=== PATIENT | male | born 1980 | race African-American/Black ===

== ENCOUNTER 2018-04-27 22:53 | Inpatient (IN) | payer BC ==
[~2018-04-27] VITALS: Ht 185.4 cm; Wt 120.1 kg
[2018-04-28 00:03] VITALS: BP 137/56; PULSE 100; RESP 18
[2018-04-28] MEDS ORDERED: SOD CHLORIDE 0.9% 500 ML IV ONE (00:30)
[2018-04-28] MEDS ORDERED: NACL 0.9% 3 ML SYG IV SCH (00:30)
[2018-04-28] MEDS ORDERED: ONDANSETRON 4 MG INJ IV PRN (00:30)
[2018-04-28] MEDS ORDERED: ACETAMINOPHEN 325 MG TAB PO PRN (00:30)
[2018-04-28] MEDS ORDERED: ALBUTEROL/IPRATROPIUM (NEB) 3 ML AMP HHN PRN (00:30)
[2018-04-28] MEDS: SOD CHLORIDE 0.9% 1,000 ML IV SCH ×4 (00:46→22:25)
[2018-04-28] MEDS ORDERED: HYDROCODONE/APAP (5/325) TAB PO PRN (01:30)
[2018-04-28] MEDS: HYDROCODONE/APAP (5/325) TAB PO PRN ×3 (01:40→10:50)
[2018-04-28 02:10] VITALS: Ht 185.4 cm; Wt 120.1 kg
--- NOTE | 2018-04-28 05:54 | HP ---
Date/Time of Note Date/Time of Note DATE: 04/28/18 TIME: 05:52 Assessment/Plan VTE Prophylaxis Pharmacological prophylaxis: heparin Lines/Catheters IV Catheter Type (from Nrsg): Peripheral IV Assessment/Plan Assessment/Plan 37-year-old male transferred from outside hospital for insurance reason for management of acute kidney injury PLAN Hydrate with IV fluid Renal ultrasound Urine electrolytes Nephrology consult Result Diagram: 04/28/18 0051 04/28/18 0051 Results 24hrs Laboratory Tests Test 04/28/18 00:51 White Blood Count 15.0 H Red Blood Count 5.32 Hemoglobin 16.2 Hematocrit 50.7 Mean Corpuscular Volume 95.3 Mean Corpuscular Hemoglobin 30.5 Mean Corpuscular Hemoglobin Concent 32.0 Red Cell Distribution Width 14.2 Platelet Count 300 Mean Platelet Volume 10.1 Immature Granulocytes % 0.500 H Neutrophils % 67.8 Lymphocytes % 18.2 Monocytes % 12.2 H Eosinophils % 1.0 Basophils % 0.3 Nucleated Red Blood Cells % 0.0 Immature Granulocytes # 0.080 H Neutrophils # 10.1 H Lymphocytes # 2.7 Monocytes # 1.8 H Eosinophils # 0.2 Basophils # 0.1 Nucleated Red Blood Cells # 0.0 Sodium Level 136 Potassium Level 3.6 Chloride Level 99 Carbon Dioxide Level 18 L Anion Gap 19 H Blood Urea Nitrogen 35 H Creatinine 6.09 H Est Glomerular Filtrat Rate mL/min 10 L Glucose Level 131 Hemoglobin A1c 5.4 Calcium Level 9.3 Total Bilirubin 0.6 Direct Bilirubin 0.00 Indirect Bilirubin 0.6 Aspartate Amino Transf (AST/SGOT) 48 H Alanine Aminotransferase (ALT/SGPT) 25 Alkaline Phosphatase 79 Total Protein 8.9 H Albumin 5.2 H Globulin 3.70 H Albumin/Globulin Ratio 1.40 Triglycerides Level 190 H Cholesterol Level 167 LDL Cholesterol, Calculated 70 HDL Cholesterol 59 Cholesterol/HDL Ratio 2.8 HPI/ROS Admit Date/Time Admit Date/Time Apr 27, 2018 at 23:50 Hx of Present Illness This is a 37-year-old male with no significant past medical history who initially presented to [facility] complaining of abdominal pain. He is found to have a creatinine of 2.8 from a baseline of around 0.9. He was transferred to [facility] for insurance reasons. He said he had abdominal surgery for ruptured duodenal/gastric ulcer about 16 years ago. He reported developing chronic pancreatitis after that. He said he has been taking OxyContin for 16 years and recently he was transitioned to a lower dose of [place] by his pain specialist in order to eventually wean him off. He said he occasionally have bilious vomiting, but reported very small amount. He denied diarrhea. He thinks he has been drinking water/fluids adequately. He denied difficulty urination. PMH/Family/Social Past Medical History Medical History: other (See HPI) Medications Current Medications Sodium Chloride 1,000 ml @ 100 mls/hr Q10H IV Last administered on 04/28/18at 01:34; Admin Dose 100 MLS/HR; Start 04/28/18 at 01:30; Stop 04/30/18 at 01:29 IV Flush (NS 3 ml) 3 ml PER PROTOCOL IV ; Start 04/28/18 at 00:30 Ondansetron HCl (Zofran Inj) 4 mg Q6H PRN IV NAUSEA/VOMITING Last administered on 04/28/18at 00:46; Admin Dose 4 MG; Start 04/28/18 at 00:30 Acetaminophen (Tylenol Tab) 650 mg Q6H PRN PO .PAIN 1-3 OR TEMP; Start 04/28/18 at 00:30 Heparin Sodium (Porcine) (Heparin (5000 Units/1ml)) 5,000 unit Q12 SC ; Start 04/28/18 at 09:00 Albuterol/ Ipratropium (Duoneb) 3 ml Q2H RESP THERAPY PRN HHN SHORTNESS OF BREATH; Start 04/28/18 at 00:30 Acetaminophen/ Hydrocodone Bitart ([place] (5/325)) 1 tab Q4H PRN PO PAIN LEVEL 1-5; Start 04/28/18 at 01:30 Acetaminophen/ Hydrocodone Bitart ([place] (5/325)) 2 tab Q4H PRN PO PAIN LEVEL 6-10 Last administered on 04/28/18at 01:40; Admin Dose 2 TAB; Start 04/28/18 at 01:30 Coded Allergies: iodine (Verified Allergy, Severe, ITCHING, SWELLING, 04/28/18) ketorolac (Verified Allergy, Intermediate, HIVES, 04/28/18) dicyclomine (Verified Allergy, Unknown, HIVES, 04/28/18) Past Surgical History Past Surgical Hx: other (Abdominal surgery for gastric/duodenal ulcer) Family History Significant Family History: no pertinent family hx Social History Alcohol Use: occasionally Smoking Status: Never smoker Drug Use: none Exam/Review of Systems Vital Signs Vitals Vital Signs Date Temp Pulse Resp B/P (MAP) Pulse Ox O2 O2 Flow FiO2 Time Delivery Rate 04/28/18 97.0 100 18 137/56 Room Air 00:03 (83) Intake and Output 04/27/18 04/27/18 04/28/18 1515:00 23:00 07:00 IntakeIntake Total 500 ml BalanceBalance 500 ml Exam Constitutional: alert, oriented, well developed Head: normocephalic, atraumatic Eyes: EOMI, PERRL Respiratory: clear to auscultation, normal air movement Cardiovascular: regular rate and rhythm, nl pulses Gastrointestinal: soft, non-tender Extremities: normal pulses DEBBI LOPEZ MD Apr 28, 2018 05:54
[2018-04-28 08:11] VITALS: BP 129/84; PULSE 84; RESP 18
[2018-04-28] MEDS: HEPARIN 5,000 UNIT/1 ML VIAL SC SCH ×2 (09:26→21:03)
--- NOTE | 2018-04-28 11:56 | CONS ---
DATE OF ADMISSION: 04/27/2018 DATE OF CONSULTATION: 04/28/2018 TYPE OF CONSULTATION: Nephrology. REASON FOR CONSULTATION: Acute kidney injury. HISTORY OF PRESENT ILLNESS: This is a 37-year-old male with a past medical history of gastroduodenal ulcer status post laparotomy with duodenal resection approximately 12 years ago, history of chronic pancreatitis who initially presented to [facility] complaining of abdominal pain. The patie nt was found to have a creatinine of 2.8 mg/dL. The patient was then subsequently transferred to [facility] for further evaluation. Upon arrival, patient's repeat laboratory data marjorie wn, which showed a BUN 35, creatinine 6.09 mg/dL. The patient was initiated on IV fluids. In terms of patient's renal history, the patient denies ever having any prior history of acute kidney injury or chronic kidney disease. Denies any NSAID use. Denies any polysubstance use. The patient does admit to having chronic abdominal pain and describes having minimal oral intake with episodes o f nausea. The patient otherwise denies any hematuria, hemoptysis, any rashes, any coca-cola or dark colored urine. PAST MEDICAL HISTORY: History of chronic pancreatitis, history of peptic ulcer disease. PAST SURGICAL HISTORY: Status post duodenal resection. FAMILY HISTORY: No family history of kidney disease. SOCIAL HISTORY: Does not drink, smoke or do drugs. MEDICATIONS: Have been reviewed. REVIEW OF SYSTEMS: A 14-point review of systems conducted. Pertinent positives stated in HPI, other fischer negative. PHYSICAL EXAMINATION: VITAL SIGNS: Blood pressure 129/84, respiration 18, pulse 84, temperature 98.6. HEENT: Head is normocephalic. Pupils react to light. NECK: Supple. HEART: Regular rate. LUNGS: Show diminished breath sounds at the base. ABDOMEN: Soft, positive tenderness to palpation without rebound or guarding. EXTREMITIES: Negative for clubbing, cyanosis, no edema. DERMATOLOGIC: No rashes. MUSCULOSKELETAL: No joint effusion. NEUROLOGIC: No focal deficits. LABORATORY DATA: Shows a sodium 136, potassium 3.6 and 35, creatinine 6.09. White count 15.0, hemog lobin 16.2, platelet count is 300. The patient's urinalysis shows no significant pyuria, hematuria, +1 proteinuria. ASSESSMENT AND PLAN: This is a 37-year-old male who presents with: 1. Nonoliguric acute kidney injury with previously normal baseline creatinine. Etiology of acute ki dney injury is unclear, possible volume depletion secondary to gastrointestinal losses, possible panc reatitis. Other possibilities such as acute glomerulonephritis, vasculitis are less likely as the pa tient has a bland urinary sediment. Possible tubular injury is a consideration. Plan at this point is to check a renal ultrasound to rule out obstruction. Will check urine electrolytes, quantify the patient's proteinuria. Agree with fluid challenge. Will monitor renal function I's and O's closely. No immediate need for renal placement therapy at this time. 2. Metabolic acidosis secondary to acute kidney injury. Continue to monitor. No need for bicarbona te therapy. 3. Mineral bone disorder, monitor calcium and phosphorus levels. 4. Abdominal pain, etiology may be secondary to acute pancreatitis. We will continue patient on IV fluids, check a lipase. Consider CT scan of abdomen and pelvis. 5. History of peptic ulcer disease status post duodenal surgical resection. 6. Chronic pain syndrome. Continue current pain regimen. Thank you, Dr. Lopez, for this interesting consult. It will be a pleasure to follow patient with you throughout the hospital course. Dictated By: JAYLAN HAJI DO NR/NTS Conf#: [id number] DID#: [id number] CC: DEBBI LOPEZ MD;*EndCC*
[2018-04-28] MEDS ORDERED: DIPHENHYDRAMINE 50 MG CAP PO PRN (13:30)
[2018-04-28 17:09] VITALS: BP 153/82; PULSE 94; RESP 18
--- NOTE | 2018-04-28 17:52 | CONS ---
Assessment/Plan Assessment/Plan Assessment/Plan (Daily) Addiction and intolerance to short acting opioids Past medical history of multiple bouts of pancreatitis Acute kidney injury Mild to moderate obesity I have told him that with acute renal injury that the acetaminophen found and [place] would be under medicated. But he did tell me after the fact is that he is on low-dose of methadone 10 mg daily. We have agreed that we will increase his methadone to 10 mg twice daily but absolutely no other opioids be added. I did tell him that methadone does not have kidney nor hepatic toxicity. Morphine Dilaudid codeine base pain control medications could exacerbate his underlying kidney injury. Patient is in agreement with treatment plan Consultation Date/Type/Reason Admit Date/Time Apr 27, 2018 at 23:50 Date/Time of Note DATE: 04/28/18 TIME: 17:47 Hx of Present Illness Asked to see this pleasant 37-year-old gentleman in pain management consultation.. As the story goes patient has had past medical history of chronic nausea and vomiting details of that surgery is not available. After the patient was put on OxyContin was kept on that drug for the next 18 years. He moved out to [place] and with the assistance of his family he was encouraged to go to pain management clinic and try and get off of opioid. He has been seen by line painting machine operator in [facility] who has been slowly tapering him down off OxyContin now and on [place] the dose is unclear but 2 tablets every 8 hours as necessary for abdominal discomfort patient states he has had multiple bouts of pancreatitis over the years secondary to the initial surgery. He has been worked up for acute injury at this time differential diagnosis does include pancreatitis. Patient denies nausea vomiting at this time but he appears to be somewhat anxious denies constipation itching mental cloudiness sweating fatigue drowsiness he is not negotiating for higher doses of current pain control medica tion is no history of purposeful oversedation I do not have the impression that he associating for higher dose the pain control medication he is not unkempt he is not obviously impaired at this time or intoxicated instructed by his pain management physician not to do that again that he would require very slow tapering off [place] since he has been on for almost 20 years. I do not impression he is using pain medications and response to situational stressors this rated at 7/10 when he is very uncomfortable 3/10 when he is medicated with [place]. It is not associated with vomiting but with nausea over no other symptoms as noted above are associated with his pain there is no contact with street drugs he does not abuse alcohol or illicit drugs he is a non-smoker. Subjective hx not possible: other (No acute distress) Constitutional: no complaints, improved Eyes: no complaints ENT: no complaints Respiratory: no complaints Cardiovascular: no complaints; No chest pain, No edema, No lightheadedness, No orthopenea, No palpitations, No paroxysmal nocturnal dyspnea, No other Gastrointestinal: other (Refer to history of present illness) Genitourinary: no complaints; No bleeding, No dysuria, No discharge, No flank pain, No hematuria, No other Musculoskeletal: no complaints; No back pain, No bone/joint pain, No neck pain, No restricted range of motion, No swelling, No other Neurologic: no complaints; No confusion, No dizziness, No focal-weakness, No headache, No syncope, No seizure, No other Past Medical History Medical History: GI bleed, pancreatitis, other (See HPI) Medications Current Medications Sodium Chloride 1,000 ml @ 100 mls/hr Q10H IV Last administered on 04/28/18at 11:45; Admin Dose 100 MLS/HR; Start 04/28/18 at 01:30; Stop 04/30/18 at 01:29 IV Flush (NS 3 ml) 3 ml PER PROTOCOL IV ; Start 04/28/18 at 00:30 Ondansetron HCl (Zofran Inj) 4 mg Q6H PRN IV NAUSEA/VOMITING Last administered on 04/28/18at 00:46; Admin Dose 4 MG; Start 04/28/18 at 00:30 Acetaminophen (Tylenol Tab) 650 mg Q6H PRN PO .PAIN 1-3 OR TEMP; Start 04/28/18 at 00:30 Heparin Sodium (Porcine) (Heparin (5000 Units/1ml)) 5,000 unit Q12 SC Last administered on 04/28/18at 09:26; Admin Dose 5,000 UNIT; Start 04/28/18 at 09:00 Albuterol/ Ipratropium (Duoneb) 3 ml Q2H RESP THERAPY PRN HHN SHORTNESS OF BREATH; Start 04/28/18 at 00:30 Acetaminophen/ Hydrocodone Bitart ([place] (5/325)) 1 tab Q4H PRN PO PAIN LEVEL 1-5; Start 04/28/18 at 01:30 Acetaminophen/ Hydrocodone Bitart ([place] (5/325)) 2 tab Q4H PRN PO PAIN LEVEL 6-10 Last administered on 04/28/18at 10:50; Admin Dose 2 TAB; Start 04/28/18 at 0 1:30 Diphenhydramine HCl (Benadryl) 50 mg Q6H PRN PO ITCHING Last administered on 04/28/18at 13:35; Admin Dose 50 MG; Start 04/28/18 at 13:30 Allergies: Coded Allergies: iodine (Verified Allergy, Severe, ITCHING, SWELLING, 04/28/18) ketorolac (Verified Allergy, Intermediate, HIVES, 04/28/18) dicyclomine (Verified Allergy, Unknown, HIVES, 04/28/18) Past Surgical History Past Surgical Hx: other (Abdominal surgery for gastric/duodenal ulcer) Social History Alcohol Use: none Smoking Status: Never smoker Drug Use: none Exam/Review of Systems Exam Vitals Vital Signs Date Temp Pulse Resp B/P (MAP) Pulse Ox O2 O2 Flow FiO2 Time Delivery Rate 04/28/18 97.9 94 18 153/82 98 17:09 (105) 04/28/18 Room Air 08:11 Intake and Output 04/27/18 04/27/18 04/28/18 1515:00 23:00 07:00 IntakeIntake Total 850 ml BalanceBalance 850 ml Constitutional: alert, oriented, well developed Psych: anxiety Head: normocephalic, atraumatic; No lacerations, No hematomas, No other Eyes: nl conjunctiva, EOMI, nl lids, nl sclera, PERRL; No icteric, No fundi, disc, No other Neck: supple, non-tender; No jvd, No bruits, No masses, No thyromegaly, No nuchal rigidity, No other Respiratory: clear to auscultation, normal air movement Cardiovascular: regular rate and rhythm, nl pulses; No bruits, No diastolic murmur, No edema, No gallop, No irregular rhythm, No jugular venous distention (JVD), No murmurs/extra sounds, No rub, No systolic murmur, No S3, No S4, No other Gastrointestinal: soft, nl liver, spleen, non-tender; No ascites, No bowel sounds, No distended, No firm, No hepatomegaly, No mass, No rebound or guarding, No splenomegaly, No surgical scars, No tender, No other Neurological: MAINTENANCE WORKER II-XII intact, nl mental status, nl speech, nl strength; No confused, No DTR's symmetric, No focal weakness, No lethargic, No numbness, No reflexes, No unresponsive, No other Results Result Diagram: 04/28/18 00504/28/1850 Results 24hrs Laboratory Tests Test 04/28/18 00:51 04/28/18 00:54 04/28/18 09:00 White Blood Count 15.0 H Red Blood Count 5.32 Hemoglobin 16.2 Hematocrit 50.7 Mean Corpuscular Volume 95.3 Mean Corpuscular Hemoglobin 30.5 Mean Corpuscular 32.0 Hemoglobin Concent Red Cell Distribution Width 14.2 Platelet Count 300 Mean Platelet Volume 10.1 Immature Granulocytes % 0.500 H Neutrophils % 67.8 Lymphocytes % 18.2 Monocytes % 12.2 H Eosinophils % 1.0 Basophils % 0.3 Nucleated Red Blood Cells % 0.0 Immature Granulocytes # 0.080 H Neutrophils # 10.1 H Lymphocytes # 2.7 Monocytes # 1.8 H Eosinophils # 0.2 Basophils # 0.1 Nucleated Red Blood Cells # 0.0 Sodium Level 136 Potassium Level 3.6 Chloride Level 99 Carbon Dioxide Level 18 L Anion Gap 19 H Blood Urea Nitrogen 35 H Creatinine 6.09 H Est Glomerular Filtrat 10 L Rate mL/min Glucose Level 131 Hemoglobin A1c 5.4 Calcium Level 9.3 Total Bilirubin 0.6 Direct Bilirubin 0.00 Indirect Bilirubin 0.6 Aspartate Amino 48 H Transf (AST/SGOT) Alanine 25 Aminotransferase (ALT/SGPT) Alkaline Phosphatase 79 Total Protein 8.9 H Albumin 5.2 H Globulin 3.70 H Albumin/Globulin Ratio 1.40 Triglycerides Level 190 H Cholesterol Level 167 LDL Cholesterol, Calculated 70 HDL Cholesterol 59 Cholesterol/HDL Ratio 2.8 Lipase 477 H Urine Color YELLOW Urine Clarity SLIGHTLY CLOUDY A Urine pH 5.0 Urine Specific [place] 1.029 Urine Ketones NEGATIVE Urine Nitrite NEGATIVE Urine Bilirubin NEGATIVE Urine Urobilinogen NEGATIVE Urine Leukocyte Esterase NEGATIVE Urine Microscopic RBC 1 Urine Microscopic WBC 4 Urine Squamous FEW Epithelial Cells Urine Mucus MODERATE Urine Hemoglobin NEGATIVE Urine Random Creatinine > 605.40 H Urine Random Sodium 35 Urine Random Potassium 59.6 Urine Glucose NEGATIVE Urine Total Protein 20.0 H Medications Medication Current Medications Sodium Chloride 1,000 ml @ 100 mls/hr Q10H IV Last administered on 04/28/18 11:45; Admin Dose 100 MLS/HR; Start 04/28/18 at 01:30; Stop 04/30/18 at 01:29 IV Flush (NS 3 ml) 3 ml PER PROTOCOL IV ; Start 04/28/18 at 00:30 Ondansetron HCl (Zofran Inj) 4 mg Q6H PRN IV NAUSEA/VOMITING Last administered on 04/28/18 00:46; Admin Dose 4 MG; Start 04/28/18 at 00:30 Acetaminophen (Tylenol Tab) 650 mg Q6H PRN PO .PAIN 1-3 OR TEMP; Start 04/28/18 at 00:30 Heparin Sodium (Porcine) (Heparin (5000 Units/1ml)) 5,000 unit Q12 SC Last administered on 04/28/18 09:26; Admin Dose 5,000 UNIT; Start 04/28/18 at 09:00 Albuterol/ Ipratropium (Duoneb) 3 ml Q2H RESP THERAPY PRN HHN SHORTNESS OF B REATH; Start 04/28/18 at 00:30 Acetaminophen/ Hydrocodone Bitart ([place] (5/325)) 1 tab Q4H PRN PO PAIN LEVEL 1-5; Start 04/28/18 at 01:30 Acetaminophen/ Hydrocodone Bitart ([place] (5/325)) 2 tab Q4H PRN PO PAIN LEVEL 6-10 Last administered on 04/28/18at 10:50; Admin Dose 2 TAB; Start 04/28/18 at 01:30 Diphenhydramine HCl (Benadryl) 50 mg Q6H PRN PO ITCHING Last administered on 04/28/18 13:35; Admin Dose 50 MG; Start 04/28/18 at 13:30 CYNTHIA ACUÑA Apr 28, 2018 17:52
[2018-04-28 19:10] VITALS: BP 125/88; PULSE 97; RESP 20
--- NOTE | 2018-04-28 19:22 | PN ---
Date/Time of Note Date/Time of Note DATE: 04/28/18 TIME: 19:17 Assessment/Plan VTE Prophylaxis SCD applied (from Nsg): Yes SCD contraindicated: low risk/ambulating Pharmacological prophylaxis: NA/contraindicated Pharm contraindication: low risk/ambulating Lines/Catheters IV Catheter Type (from Nrsg): Peripheral IV Urinary Cath still in place: No Assessment/Plan Hospital Course A/P 1) Ac Renal Failure; ukn etio; Left kidney?? mod stable, cont ivf. f/u MM studies. +/- Bx. supplement use? 2) Nonadherence to accurate i&os 3) H/o GIB/PUD surgery in the past 4) Chr Pancreatitis 5) Chr pain dz/ dependence? 6) Past etoh? 7) Metabolic Acidosis S: denies hematuria or h/o stones. no fever/ dysuria/ dyspnea/ edema or FH of kidney dz O: vss PE no pallor/ jvd reg s1s2; no mrg ctab bs+ nt; nd; no r/r/g; no cvat no edema Result Diagram: 04/28/181 04/28/18 0051 Results 24hrs Laboratory Tests Test 04/28/18 00:51 04/28/18 00:54 04/28/18 09:00 White Blood Count 15.0 H Red Blood Count 5.32 Hemoglobin 16.2 Hematocrit 50.7 Mean Corpuscular Volume 95.3 Mean Corpuscular Hemoglobin 30.5 Mean Corpuscular 32.0 Hemoglobin Concent Red Cell Distribution Width 14.2 Platelet Count 300 Mean Platelet Volume 10.1 Immature Granulocytes % 0.500 H Neutrophils % 67.8 Lymphocytes % 18.2 Monocytes % 12.2 H Eosinophils % 1.0 Basophils % 0.3 Nucleated Red Blood Cells % 0.0 Immature Granulocytes # 0.080 H Neutrophils # 10.1 H Lymphocytes # 2.7 Monocytes # 1.8 H Eosinophils # 0.2 Basophils # 0.1 Nucleated Red Blood Cells # 0.0 Sodium Level 136 Potassium Level 3.6 Chloride Level 99 Carbon Dioxide Level 18 L Anion Gap 19 H Blood Urea Nitrogen 35 H Creatinine 6.09 H Est Glomerular Filtrat 10 L Rate mL/min Glucose Level 131 Hemoglobin A1c 5.4 Calcium Level 9.3 Total Bilirubin 0.6 Direct Bilirubin 0.00 Indirect Bilirubin 0.6 Aspartate Amino 48 H Transf (AST/SGOT) Alanine 25 Aminotransferase (ALT/SGPT) Alkaline Phosphatase 79 Total Protein 8.9 H Albumin 5.2 H Globulin 3.70 H Albumin/Globulin Ratio 1.40 Triglycerides Level 190 H Cholesterol Level 167 LDL Cholesterol, Calculated 70 HDL Cholesterol 59 Cholesterol/HDL Ratio 2.8 Lipase 477 H Urine Color YELLOW Urine Clarity SLIGHTLY CLOUDY A Urine pH 5.0 Urine Specific [place] 1.029 Urine Ketones NEGATIVE Urine Nitrite NEGATIVE Urine Bilirubin NEGATIVE Urine Urobilinogen NEGATIVE Urine Leukocyte Esterase NEGATIVE Urine Microscopic RBC 1 Urine Microscopic WBC 4 Urine Squamous FEW Epithelial Cells Urine Mucus MODERATE Urine Hemoglobin NEGATIVE Urine Random Creatinine > 605.40 H Urine Random Sodium 35 Urine Random Potassium 59.6 Urine Glucose NEGATIVE Urine Total Protein 20.0 H Exam/Review of Systems Exam Vitals Vital Signs Date Temp Pulse Resp B/P (MAP) Pulse Ox O2 O2 Flow FiO2 Time Delivery Rate 04/28/18 97.9 94 18 153/82 98 17:09 (105) 04/28/18 Room Air 08:11 Intake and Output 04/27/18 04/27/18 04/28/18 1414:59 22:59 06:59 IntakeIntake Total 850 ml BalanceBalance 850 ml Results Results 24hrs Laboratory Tests Test 04/28/18 00:51 04/28/18 00:54 04/28/18 09:00 White Blood Count 15.0 H Red Blood Count 5.32 Hemoglobin 16.2 Hematocrit 50.7 Mean Corpuscular Volume 95.3 Mean Corpuscular Hemoglobin 30.5 Mean Corpuscular 32.0 Hemoglobin Concent Red Cell Distribution Width 14.2 Platelet Count 300 Mean Platelet Volume 10.1 Immature Granulocytes % 0.500 H Neutrophils % 67.8 Lymphocytes % 18.2 Monocytes % 12.2 H Eosinophils % 1.0 Basophils % 0.3 Nucleated Red Blood Cells % 0.0 Immature Granulocytes # 0.080 H Neutrophils # 10.1 H Lymphocytes # 2.7 Monocytes # 1.8 H Eosinophils # 0.2 Basophils # 0.1 Nucleated Red Blood Cells # 0.0 Sodium Level 136 Potassium Level 3.6 Chloride Level 99 Carbon Dioxide Level 18 L Anion Gap 19 H Blood Urea Nitrogen 35 H Creatinine 6.09 H Est Glomerular Filtrat 10 L Rate mL/min Glucose Level 131 Hemoglobin A1c 5.4 Calcium Level 9.3 Total Bilirubin 0.6 Direct Bilirubin 0.00 Indirect Bilirubin 0.6 Aspartate Amino 48 H Transf (AST/SGOT) Alanine 25 Aminotransferase (ALT/SGPT) Alkaline Phosphatase 79 Total Protein 8.9 H Albumin 5.2 H Globulin 3.70 H Albumin/Globulin Ratio 1.40 Triglycerides Level 190 H Cholesterol Level 167 LDL Cholesterol, Calculated 70 HDL Cholesterol 59 Cholesterol/HDL Ratio 2.8 Lipase 477 H Urine Color YELLOW Urine Clarity SLIGHTLY CLOUDY A Urine pH 5.0 Urine Specific [place] 1.029 Urine Ketones NEGATIVE Urine Nitrite NEGATIVE Urine Bilirubin NEGATIVE Urine Urobilinogen NEGATIVE Urine Leukocyte Esterase NEGATIVE Urine Microscopic RBC 1 Urine Microscopic WBC 4 Urine Squamous FEW Epithelial Cells Urine Mucus MODERATE Urine Hemoglobin NEGATIVE Urine Random Creatinine > 605.40 H Urine Random Sodium 35 Urine Random Potassium 59.6 Urine Glucose NEGATIVE Urine Total Protein 20.0 H Medications Medication Current Medications Sodium Chloride 1,000 ml @ 100 mls/hr Q10H IV Last administered on 04/28/18at 11:45; Admin Dose 100 MLS/HR; Start 04/28/18 at 01:30; Stop 04/30/18 at 01:29 IV Flush (NS 3 ml) 3 ml PER PROTOCOL IV ; Start 04/28/18 at 00:30 Ondansetron HCl (Zofran Inj) 4 mg Q6H PRN IV NAUSEA/VOMITING Last administered on 04/28/18at 00:46; Admin Dose 4 MG; Start 04/28/18 at 00:30 Heparin Sodium (Porcine) (Heparin (5000 Units/1ml)) 5,000 unit Q12 SC Last administered on 04/28/18at 09:26; Admin Dose 5,000 UNIT; Start 04/28/18 at 09:00 Albuterol/ Ipratropium (Duoneb) 3 ml Q2H RESP THERAPY PRN HHN SHORTNESS OF BREATH; Start 04/28/18 at 00:30 Methadone HCl (Methadone) 10 mg BID PO ; Start 04/28/18 at 21:00 SREE JEONG MD Apr 28, 2018 19:22
[2018-04-28] MEDS ORDERED: DOCUSATE SODIUM 100 MG CAP PO PRN (19:30)
[2018-04-28] MEDS: METHADONE 10 MG TAB PO SCH (21:00)
[2018-04-28] MEDS: NIFEdipine (XL) 60 MG TAB PO SCH (21:01)
[2018-04-29 02:00] VITALS: BP 128/82; PULSE 89; RESP 20
[2018-04-29] MEDS: SOD CHLORIDE 0.9% 1,000 ML IV SCH ×2 (07:30→18:28)
[2018-04-29 07:57] VITALS: BP 119/76; PULSE 70; RESP 18
[2018-04-29] MEDS: METHADONE 10 MG TAB PO SCH ×2 (08:08→21:03)
[2018-04-29] MEDS: HEPARIN 5,000 UNIT/1 ML VIAL SC SCH ×2 (09:34→21:04)
[2018-04-29] MEDS: NIFEdipine (XL) 60 MG TAB PO SCH (09:42)
[2018-04-29] MEDS ORDERED: DIPHENHYDRAMINE 50 MG CAP PO PRN (12:30)
[2018-04-29 14:35] VITALS: BP 122/53; PULSE 100; RESP 18
[2018-04-29 19:30] VITALS: BP 130/74; PULSE 107; RESP 20
--- NOTE | 2018-04-29 20:34 | PN ---
Date/Time of Note Date/Time of Note DATE: 04/29/18 TIME: 20:33 Assessment/Plan VTE Prophylaxis Risk score (from Nsg)>0 risk: 3 SCD applied (from Ns): No SCD contraindicated: low risk/ambulating Pharmacological prophylaxis: LMWH Lines/Catheters IV Catheter Type (from Nrsg): Peripheral IV Urinary Cath still in place: No Assessment/Plan Hospital Course A/P 1) Ac Renal Failure; ukn etio; Left kidney?? mod stable, cont ivf. f/u MM studies. +/- Bx. supplement use? 2) Nonadherence to accurate i&os 3) H/o GIB/PUD surgery in the past 4) Chr Pancreatitis 5) Chr pain dz/ dependence? 6) Past etoh? 7) Metabolic Acidosis S: 04/28 denies hematuria or h/o stones. no fever/ dysuria/ dyspnea/ edema or FH of kidney dz 04/29: no events; maybe anxious O: vss PE no pallor/ jvd reg s1s2; no mrg ctab bs+ nt; nd; no r/r/g; no edema; rash? Result Diagram: 04/29/18 0421 04/29/18 0421 Results 24hrs Laboratory Tests Test 04/29/18 04:21 04/29/18 04:30 White Blood Count 14.0 H Red Blood Count 4.77 Hemoglobin 14.8 Hematocrit 44.1 Mean Corpuscular Volume 92.5 Mean Corpuscular Hemoglobin 31.0 Mean Corpuscular Hemoglobin Concent 33.6 Red Cell Distribution Width 13.2 Platelet Count 306 Mean Platelet Volume 10.4 Immature Granulocytes % 0.400 Neutrophils % 69.6 Lymphocytes % 15.9 Monocytes % 11.5 H Eosinophils % 2.2 Basophils % 0.4 Nucleated Red Blood Cells % 0.0 Immature Granulocytes # 0.060 H Neutrophils # 9.7 H Lymphocytes # 2.2 Monocytes # 1.6 H Eosinophils # 0.3 Basophils # 0.1 Nucleated Red Blood Cells # 0.0 Prothrombin Time 12.8 Prothrombin Time Ratio 1.0 INR International Normalized Ratio 0.95 Activated Partial Thromboplast Time 26.9 Sodium Level 139 Potassium Level 3.9 Chloride Level 105 Carbon Dioxide Level 21 Anion Gap 13 Blood Urea Nitrogen 34 H Creatinine 1.92 #H Est Glomerular Filtrat Rate mL/min 39 L Glucose Level 108 Hemoglobin A1c 5.3 Calcium Level 9.3 Phosphorus Level 4.0 Magnesium Level 2.5 Total Bilirubin 0.6 Direct Bilirubin 0.00 Indirect Bilirubin 0.6 Aspartate Amino Transf (AST/SGOT) 77 #H Alanine Aminotransferase (ALT/SGPT) 43 Alkaline Phosphatase 77 Total Protein 7.5 # Albumin 4.5 Globulin 3.00 Albumin/Globulin Ratio 1.50 Thyroid Stimulating Hormone (TSH) 0.713 Urine Color YELLOW Urine Clarity CLEAR Urine pH 5.0 Urine Specific [place] 1.025 Urine Ketones TRACE A Urine Nitrite NEGATIVE Urine Bilirubin NEGATIVE Urine Urobilinogen NEGATIVE Urine Leukocyte Esterase NEGATIVE Urine Microscopic RBC 1 Urine Microscopic WBC 3 Urine Hemoglobin NEGATIVE Urine Glucose NEGATIVE Urine Total Protein 1+ H Urine Opiates Screen Positive Urine Barbiturates Negative Urine Amphetamines Screen Negative Urine Benzodiazepines Screen Negative Urine Cocaine Screen Negative Urine Cannabinoids Positive Exam/Review of Systems Exam Vitals Vital Signs Date Temp Pulse Resp B/P (MAP) Pulse Ox O2 O2 Flow FiO2 Time Delivery Rate 04/29/18 98.2 107 20 130/74 93 Room Air 19:30 (92) Intake and Output 04/28/18 04/28/18 04/29/18 1414:59 22:59 06:59 IntakeIntake Total 890 ml 2120 ml 1275 ml OutputOutput Total 450 ml 600 ml 1150 ml BalanceBalance 440 ml 1520 ml 125 ml Results Results 24hrs Laboratory Tests Test 04/29/18 04:21 04/29/18 04:30 White Blood Count 14.0 H Red Blood Count 4.77 Hemoglobin 14.8 Hematocrit 44.1 Mean Corpuscular Volume 92.5 Mean Corpuscular Hemoglobin 31.0 Mean Corpuscular Hemoglobin Concent 33.6 Red Cell Distribution Width 13.2 Platelet Count 306 Mean Platelet Volume 10.4 Immature Granulocytes % 0.400 Neutrophils % 69.6 Lymphocytes % 15.9 Monocytes % 11.5 H Eosinophils % 2.2 Basophils % 0.4 Nucleated Red Blood Cells % 0.0 Immature Granulocytes # 0.060 H Neutrophils # 9.7 H Lymphocytes # 2.2 Monocytes # 1.6 H Eosinophils # 0.3 Basophils # 0.1 Nucleated Red Blood Cells # 0.0 Prothrombin Time 12.8 Prothrombin Time Ratio 1.0 INR International Normalized Ratio 0.95 Activated Partial Thromboplast Time 26.9 Sodium Level 139 Potassium Level 3.9 Chloride Level 105 Carbon Dioxide Level 21 Anion Gap 13 Blood Urea Nitrogen 34 H Creatinine 1.92 #H Est Glomerular Filtrat Rate mL/min 39 L Glucose Level 108 Hemoglobin A1c 5.3 Calcium Level 9.3 Phosphorus Level 4.0 Magnesium Level 2.5 Total Bilirubin 0.6 Direct Bilirubin 0.00 Indirect Bilirubin 0.6 Aspartate Amino Transf (AST/SGOT) 77 #H Alanine Aminotransferase (ALT/SGPT) 43 Alkaline Phosphatase 77 Total Protein 7.5 # Albumin 4.5 Globulin 3.00 Albumin/Globulin Ratio 1.50 Thyroid Stimulating Hormone (TSH) 0.713 Urine Color YELLOW Urine Clarity CLEAR Urine pH 5.0 Urine Specific [place] 1.025 Urine Ketones TRACE A Urine Nitrite NEGATIVE Urine Bilirubin NEGATIVE Urine Urobilinogen NEGATIVE Urine Leukocyte Esterase NEGATIVE Urine Microscopic RBC 1 Urine Microscopic WBC 3 Urine Hemoglobin NEGATIVE Urine Glucose NEGATIVE Urine Total Protein 1+ H Urine Opiates Screen Positive Urine Barbiturates Negative Urine Amphetamines Screen Negative Urine Benzodiazepines Screen Negative Urine Cocaine Screen Negative Urine Cannabinoids Positive Medications Medication Current Medications Sodium Chloride 1,000 ml @ 100 mls/hr Q10H IV Last administered on 04/29/18 18:28; Admin Dose 100 MLS/HR; Start 04/28/18 at 01:30; Stop 04/30/18 at 01:29 IV Flush (NS 3 ml) 3 ml PER PROTOCOL IV ; Start 04/28/18 at 00:30 Ondansetron HCl (Zofran Inj) 4 mg Q6H PRN IV NAUSEA/VOMITING Last administered on 04/28/18at 00:46; Admin Dose 4 MG; Start 04/28/18 at 00:30 Heparin Sodium (Porcine) (Heparin (5000 Units/1ml)) 5,000 unit Q12 SC Last administered on 04/29/18at 09:34; Admin Dose 5,000 UNIT; Start 04/28/18 at 09:00 Albuterol/ Ipratropium (Duoneb) 3 ml Q2H RESP THERAPY PRN HHN SHORTNESS OF BREATH; Start 04/28/18 at 00:30 Methadone HCl (Methadone) 10 mg BID PO Last administered on 04/29/18 08:08; Admin Dose 10 MG; Start 04/28/18 at 21:00 Nifedipine (Procardia Xl) 60 mg DAILY PO Last administered on 04/29/18at 09:42; Admin Dose 60 MG; Start 04/28/18 at 21:00 Docusate Sodium (Colace) 100 mg BID PRN PO CONSTIPATION; Start 04/28/18 at 19:30 Clonidine (Catapres) 0.1 mg Q4H PRN PO ELEVATED SYSTOLIC BP; Start 04/28/18 at 19:30 Diphenhydramine HCl (Benadryl) 50 mg Q6H PRN PO ITCHING Last administered on 04/29/18at 13:24; Admin Dose 50 MG; Start 04/29/18 at 12:30 SREE JEONG MD Apr 29, 2018 20:34
[2018-04-30 02:40] VITALS: BP 129/84; PULSE 103; RESP 20
[2018-04-30 08:26] VITALS: BP 141/81; PULSE 121; RESP 20
[2018-04-30] MEDS: METHADONE 10 MG TAB PO SCH (09:21)
[2018-04-30] MEDS: NIFEdipine (XL) 60 MG TAB PO SCH (09:21)
[2018-04-30] MEDS: HEPARIN 5,000 UNIT/1 ML VIAL SC SCH (09:25)
[2018-04-30 15:09] VITALS: BP 139/89; PULSE 96; RESP 18
--- NOTE | 2018-04-30 16:48 | PDOCDIS ---
Discharge Instructions CONDITION [id number] Patient Condition: [id number] Stable HOME CARE INSTRUCTIONS: [id number] Diet Instructions: [id number] FOLLOW UP/APPOINTMENTS Follow-up Plan appt primary 1wk Dr Bond 2wSREE Márquez MD Apr 30, 2018 16:48
[2018-04-30] MEDS ORDERED: NIFE60TA2 PO (16:49)
[2018-04-30] MEDS ORDERED: METH10TA2 PO (16:49)
[2018-04-30] MEDS ORDERED: DOCU-144 PO (16:49)
--- NOTE | 2018-04-30 17:41 | DS ---
Date/Time of Note Date/Time of Note DATE: 04/30/18 TIME: 17:39 Discharge Summary Admission/Discharge Info Admit Date/Time Apr 27, 2018 at 23:50 Discharge Date/Time Apr 30, 2018 at 17:10 Patient Condition: Stable Consults Dr Varun Frank Procedures Labs Creatinine 6.0 on admission. Today 1.2. Tox screen showed marijuana and opiates. 24-hour urine sent. [phone] Hx of Present Illness 37-year-old gentleman seen in [facility] ER with abdominal pain. Creatinine was around 6. Transferred for continuity Hospital Course Hospitalist coverage/hospital course seen by nephrology regarding acute renal failure. Etiology unknown. Patient's creatinine improved with conservative measures. He has some agitation although awake alert oriented stable and fit for discharge home. Additionally was seen by pain management. He was instructed to follow-up with nephrology. A/P 1) Ac Renal Failure; ukn etio; Left kidney?? stable, discharge home. MM studies. +/- Bx. supplement use? 2) Nonadherence to accurate i&os 3) H/o GIB/PUD surgery in the past 4) Chr Pancreatitis 5) Chr pain dz/ dependence? 6) Past etoh? 7) Metabolic Acidosis S: 04/28 denies hematuria or h/o stones. no fever/ dysuria/ dyspnea/ edema or FH of kidney dz 04/29: no events; maybe anxious 04/30: Anxious but otherwise no distress O: vss PE no pallor/ jvd reg s1s2; no mrg ctab bs+ nt; nd; no r/r/g; no edema; rash? Home Meds Active Scripts Docusate Sodium* (Colace*) 100 Mg Capsule, 100 MG PO BID PRN for CONSTIPATION for 1 Day, CAP Prov:SREE JEONG MD 04/30/18 Methadone Hcl* (Methadone*) 10 Mg Tab, 10 MG PO BID for 1 Day, TAB Prov:SREE JEONG MD 04/30/18 Nifedipine (Procardia Xl) 60 Mg Tab.er.24, 60 MG PO DAILY for 30 Days, #30 TAB 1 Refill Prov:SREE JEONG MD 04/30/18 Follow-up Plan appt primary 1wk Dr Bond 2wks Primary Care Provider Not On Staff Doctor Time spent on discharge: > 30 minutes Pending Labs Laboratory Tests Test 04/30/18 06:33 White Blood Count 12.7 10^3/ul (4.8-10.8) Red Blood Count 4.45 10^6/ul (4.70-6.10) Hemoglobin 13.6 g/dl (14.0-18.0) Hematocrit 41.3 % (42.0-52.0) Mean Corpuscular Volume 92.8 fl (82.0-101.0) Mean Corpuscular Hemoglobin 30.6 pg (29.0-33.0) Mean Corpuscular Hemoglobin Concent 32.9 g/dl (32.0-37.0) Red Cell Distribution Width 13.1 % (11.5-14.5) Platelet Count 247 10^3/UL (140-415) Mean Platelet Volume 10.1 fl (7.4-10.4) Immature Granulocytes % 0.400 % (0.001-0.429) Neutrophils % 62.7 % (39.0-77.0) Lymphocytes % 19.9 % (15.0-51.0) Monocytes % 14.1 % (0.0-11.0) Eosinophils % 2.3 % (0.0-7.0) Basophils % 0.6 % (0.0-2.0) Nucleated Red Blood Cells % 0.0 /100WBC (0.0-0.0) Immature Granulocytes # 0.050 10^3/ul (0.0-0.031) Neutrophils # 8.0 10^3/ul (1.6-7.5) Lymphocytes # 2.5 10^3/ul (0.8-2.9) Monocytes # 1.8 10^3/ul (0.3-0.9) Eosinophils # 0.3 10^3/ul (0.0-0.5) Basophils # 0.1 10^3/ul (0.0-0.1) Nucleated Red Blood Cells # 0.0 10^3/ul (0.0-0.0) Sodium Level 138 mmol/L (135-144) Potassium Level 4.1 mmol/L (3.5-5.1) Chloride Level 104 mmol/L (97-110) Carbon Dioxide Level 22 mmol/L (21-31) Anion Gap 12 (5-13) Blood Urea Nitrogen 29 mg/dl (7-20) Creatinine 1.20 mg/dl (0.61-1.24) Est Glomerular Filtrat Rate mL/min > 60 mL/min (>60) Glucose Level 116 mg/dl (70-220) Calcium Level 9.1 mg/dl (8.4-10.2) SREE JEONG MD Apr 30, 2018 17:41
== END 2018-04-30 17:10 | disposition home or self-care (01) | DRG 683 ==
LOC: MS1 23:50
PROVIDERS: ADMIT Internal Medicine; ATTEND Internal Medicine
DX: N17.9 Acute kidney failure, unspecified (principal); K86.1 Other chronic pancreatitis; E87.2 Acidosis; G89.29 Other chronic pain; E66.9 Obesity, unspecified; Z68.34 Body mass index [BMI] 34.0-34.9, adult; Z87.11 Personal history of peptic ulcer disease
CPT/HCPCS: 76775; 80048; 80053; 80061; 80307; 81001; 81003; 82043; 82436; 83036; 83690; 83735; 84100; 84133; 84155; 84300; 84443; 85025; 85610; 85730; J1644; J2405; J7030; J7040

== ENCOUNTER 2018-05-15 19:26 | Emergency (ER) | payer SELFPAY ==
[~2018-05-15] VITALS: Ht 185.4 cm; Wt 115.9 kg
[~2018-05-15 19:26] MED LIST: DOCU-144 PO; METH10TA2 PO; NIFE60TA2 PO
[2018-05-15 19:30] VITALS: BP 153/104; PULSE 94; RESP 16; Ht 185.4 cm; Wt 115.9 kg
== END 2018-05-15 22:02 | disposition left against medical advice (07) ==
LOC: E/R 19:26
DX: Z53.21 Procedure and treatment not carried out due to patient leaving prior to being seen by health care provider (principal)
CPT/HCPCS: 93005